=== PATIENT | male | born 1995 | race Caucasian/White ===

== ENCOUNTER 2021-03-20 07:00 | Day surgery (SDC) | payer OTHER ==
[2021-03-20] VITALS (7 sets, daily range): BP systolic 119–148; BP diastolic 52–84
[~2021-03-20] VITALS: Ht 185.4 cm; Wt 90.0 kg
--- NOTE | 2021-03-20 08:00 | NUR ---
PATIENT AMBULATORY TO ROOM. CONSENT OBTAINED. VS OBTAINED. DR TRUJILLO NOTIFIED. NEW ORDERS RECEIVED. ADMISSION ASSESSMENT COMPLETED AT THIS TIME. IV ESTABLISHED. ORIENTED TO ROOM AND UNIT. CALL LIGHT IN REAC. WILL CONTINUE TO MONITOR.
[2021-03-20 09:07] LABS: HEMATOCRIT 41.8 % (39.0-50.0); HEMOGLOBIN 13.7 g/dl (14.0-18.0); IMMATURE GRANULOCYTES 0.4 % (0.0-5.0); MEAN CELL VOLUME 89.5 fL CALC (80.0-100.0); MEAN CORPUSCULAR HGB 29.3 pG CALC (26.0-32.0); MEAN CORPUSCULAR HGB CONC 32.8 g/dL CAL (32.0-36.0); NEUT# 2.38 thou/uL (1.82-7.42); RED BLOOD COUNT 4.67 mill/uL (4.70-6.10); RED CELL DISTRI WIDTH 12.9 % (11.5-15.5)
[2021-03-20 09:26] LABS: ALBUMIN 3.9 g/dL (3.2-5.0); ALKALINE PHOSPHATASE 49 u/l (38-126); ANION GAP 11 (6-22 (CALC)); BILIRUBIN, TOTAL 0.6 mg/dL (0.0-1.4); BUN 27 mg/dL (9-20); BUN/CREATININE RATIO 31 (12-20 (CALC)); CARBON DIOXIDE 28 mmol/l (22-30); CHLORIDE 102 mmol/l (95-108); CREATININE 0.9 mg/dL (0.7-1.3); GFR > 60 ML/MIN (>=60 (CALC)); GFR FOR AFR.AMER. > 60 ML/MIN (>=60 (CALC)); POTASSIUM 4.4 mmol/l (3.5-5.1); SGOT/AST 24 u/l (17-59); SODIUM 136 mmol/l (137-146); TOTAL PROTEIN 6.8 g/dL (6.3-8.2)
[2021-03-20] MEDS ORDERED: NALTREXONE50 MG PO (13:46)
[2021-03-20] MEDS ORDERED: KLONOPIN0.5 MG PO (13:47)
[2021-03-20] MEDS ORDERED: CLONIDINE PO (13:47)
[2021-03-20] MEDS ORDERED: CLONIDINE0.1 MG PO (17:54)
--- NOTE | 2021-03-20 18:40 | NUR ---
PATIENT RETURNED TO ROOM VIA BED WITH RN AND MD IN ATTENDANCE. PATIENT IS DROWSY AT THIS TIME. O2 VIA NASAL CANNULA IN PLACE. IV SITE TO RIGHT HAND AND LEFT FOREARM INTACT. VS TAKEN AND RECORDED. ATTEMPT TO ORIENT PATIENT TO ROOM AND SURROUNDINGS WITH LITTLE SUCCESS AT THIS TIME. CALL LIGHT IN REACH. WILL CONT TO MONITOR CLOSELY.
--- NOTE | 2021-03-20 19:30 | NUR ---
PATIENT HAVING DRY HEAVES AND SPITTING OUT CLEAR PHELM. MEDICATED WITH PHENERGAN 12.5MG IN 50CC OF NS OVER 15MIN ORDERED. HOB ELEVATED AND RESTING ON HIS LEFT SIDE. CALL LIGHT IN REACH. WILL CONT TO MONITOR CLOSELY.
--- NOTE | 2021-03-20 20:30 | NUR ---
PATIENT VOIDING CLEAR YELLOW URINE. ASKING FOR SOMETHING TO EAT AND DRINK-PROVIDED WITH CRACKERS AND H2O. RESTLESS AND ASKING FOR SOMETHING FOR PAIN AND SLEEP. WILL CONT TO MONITOR.
--- NOTE | 2021-03-20 21:23 | NUR ---
PATIENT RESTING IN BED AT THIS TIME-ABLE TO TOLERATE CRACKERS AND PO FLUIDS AT THIS TIME. C/O SEVERE CRAMPING OF LEGS, VERY RESTLESS IN BED. ATIVAN 2MG IVP GIVEN FOR AGITATION. PATIENT IS ORIENTED TO PERSON AND PLACE. SAFETY PRECAUTIONS REINFORCED. CALL LIGHT IN REAC. WILL CONT TO MONITOR CLOSELY.
--- NOTE | 2021-03-20 23:15 | NUR ---
PATIENT RESTING IN BED BUT CONT TO BE RESTLESS AND C/O SEVERE CRAMPING TO BLE. VS REMAIN STABLE. O2 SATS HIGH 90'S ON ROOM AIR. IV'S REMAIN INTACT AT THIS TIME. VS REMAIN STABLE AT THIS TIME. MEDICATED WITH KLONPIN AND CLONODINE SCHEDULE. TAKING PO MEDS WITH H20-NO DIFFICULTY WIOTH SWALLOWING NOTED. CALL LIGHT IN REACH. WILL CONT TO MONITOR.
--- NOTE | 2021-03-21 01:12 | NUR ---
PATIENT CONT TO BE RESTLESS-STATES THAT HE NEEDS TO GO TO THE BR-ASSISTED TO BR-UNSTEADY ON HIS FEET. PATIENT WAS ABLE TO HAVE BM-MODERATE AMT OF FORMED BROWN STOOL AND CONT TO VOID QS YELLOW URINE. ASSISTED BACK TO BED. MEDICATED WITH ATIVAN 2MG IVP FOR RESTLESSNESS VIA LEFT FOREARM IV SITE-SITE REMAINS HEALTHY AT THIS TIME. SAFETY PRECAUTIONS REINFORCED. BED ALARM IN PLACE FOR PATIENT SAFETY. WILL CONT TO MONITOR CLOSELY
--- NOTE | 2021-03-21 02:30 | NUR ---
PATIENT POSITIONED ON RIGHT SIDE WITH EYES CLOSED. RESPS ARE EVEN AND UNLABORED. RESTING QUIETLY AT THIS TIME. BED ALARM IN PLACE. CALL LIGHT IN REACH. WILL CONT TO MONITOR.
[2021-03-21 03:31] VITALS: BP 138/68
--- NOTE | 2021-03-21 03:54 | NUR ---
VS REMAINS STABLE WITH O2 SAT OF 100% ON ROOM AIR. C/O SEVERE HEADACHE. MEDICATED WITH SCHEDULED MEDS ORDERED. PATIENT CONT TO TAKE PO MEDS AND PO FLUIDS WITHOUT ANY DIFFICULTY. RESTLESS AND ASKING FOR MORE MEDICATION. BED ALARM IN PLACE FOR PATIENT SAFETY. CALL LIGHT IN REACH. WILL CONT TO MONITOR CLOSELY.
--- NOTE | 2021-03-21 05:18 | NUR ---
PATIENT RESTLESS IN BED-CONT TO C/O HEADACHE AND SEVERE CRAMPING. MEDICATED WITH ATIVAN 2MG IVP VIA LEFT FOREARM IV SITE. IV SITE TO RIGHT HAND INTACT. BED ALARM IN PLACE FOR PATIENT SAFETY. CALL LIGHT IN REACH. WILL CONT TO MONITOR CLOSELY.
[2021-03-21 05:54] LABS: HEMATOCRIT 44.1 % (39.0-50.0); HEMOGLOBIN 14.9 g/dl (14.0-18.0); IMMATURE GRANULOCYTES 0.6 % (0.0-5.0); MEAN CORPUSCULAR HGB CONC 33.8 g/dL CAL (32.0-36.0); NEUT# 4.72 thou/uL (1.82-7.42); RED BLOOD COUNT 5.13 mill/uL (4.70-6.10); RED CELL DISTRI WIDTH 12.8 % (11.5-15.5)
[2021-03-21 05:58] LABS: ALBUMIN 4.4 g/dL (3.2-5.0); ALKALINE PHOSPHATASE 50 u/l (38-126); ANION GAP 20 (6-22 (CALC)); BILIRUBIN, TOTAL 0.5 mg/dL (0.0-1.4); BUN 19 mg/dL (9-20); BUN/CREATININE RATIO 24 (12-20 (CALC)); CHLORIDE 99 mmol/l (95-108); CREATININE 0.8 mg/dL (0.7-1.3); GFR > 60 ML/MIN (>=60 (CALC)); GFR FOR AFR.AMER. > 60 ML/MIN (>=60 (CALC)); MAGNESIUM 1.9 mg/dL (1.6-2.3); SGOT/AST 35 u/l (17-59); SODIUM 137 mmol/l (137-146); TOTAL PROTEIN 7.5 g/dL (6.3-8.2)
[2021-03-21 06:04] LABS: CARBON DIOXIDE 22 mmol/l (22-30)
[2021-03-21 08:33] VITALS: BP 145/81
--- NOTE | 2021-03-21 08:35 | NUR ---
REPORT RECEIVED FROM TIERNEY STRINGER. PT VSS PT AWAKE AND DROWSY BUT RESPONDS APPROPRIATELY TO QUESTIONS. PT IS RESTLESS. RE DIRECTABLE. WILL REVIEW EMAR AND MEDICATE APPROPRIATE. SITTER IN HALLWAY FOR ADDITIONAL SAFETY MEASURES. PT DOES NOT APPEAR TO BE IN ANY TYPE OF DISTRESS. CALL LIGHT WITHIN REACH AND BED ALARM ON. WILL CONTINUE TO MONITOR CLOSELY.
[2021-03-21 16:02] VITALS: BP 144/81
[2021-03-22] MEDS ORDERED: KLONOPIN0.5 MG PO (15:53)
== END 2021-03-21 17:25 | disposition home or self-care (01) | DRG 897 ==
LOC: ANR 07:00 → MS2 07:00 → ANR 16:07
PROVIDERS: ATTEND Anesthesiology
DX: F11.20 Opioid dependence, uncomplicated (principal)
CPT/HCPCS: J2060; J2354; J3475